=== PATIENT | male | born 1950 | race American Indian/Alaskan Native ===

== ENCOUNTER 2017-12-02 11:21 | Outpatient (CLI) | payer MEDICARE ==
--- NOTE | 2017-12-02 21:44 | XRay Report ---
FINAL REPORT EXAM: XR HIPS BILAT 2V W/PELVIS HISTORY: HIP PAIN, ANKYLOSING SPONDYLITIS TECHNIQUE: Bilateral hips and AP pelvis three views PRIORS: None. FINDINGS: There are bilateral hip prosthesis present. These appear intact. There is no evidence for dislocation. There is some protrusion the right hip prosthesis medially. Heterotopic calcifications are noted at surrounding the joint spaces. No acute fracture is identified. Bony pelvis demonstrates no acute findings. IMPRESSION: Bilateral hip prosthesis There is some protrusion at the acetabulum of the right hip prosthesis comparison old films would be helpful if these could be obtained. No acute no acute fractures identified
--- NOTE | 2017-12-02 21:56 | XRay Report ---
FINAL REPORT EXAM: XR SPINE LUMBOSACRAL 4+V HISTORY: HIP PAIN, ANKYLOSING SPONDYLITIS TECHNIQUE: Lumbar spine five views PRIORS: None. FINDINGS: Vertebral bodies demonstrate normal height and alignment. The disc spaces are within normal limits. Syndesmophytes are seen T12-L1 and L1-L2. There are hypertrophic facet joint changes present from L3-L4 through L5-S1. There is some calcification of the interspinous ligaments at the pleural process junction through L1-L2 compatible with the diagnosis ankylosing spondylitis. There is near fusion of the left SI joint with marked narrowing of the right SI joint IMPRESSION: Findings compatible with the diagnosis of ankylosing spondylitis
== END 2017-12-02 11:22 | disposition home or self-care (01) ==
LOC: SPVIMAG 11:21
PROVIDERS: ATTEND Internal Medicine
DX: M25.552 Pain in left hip (principal); Z96.643 Presence of artificial hip joint, bilateral
CPT/HCPCS: 72110; 73521